=== PATIENT | female | born 1995 | race Caucasian/White ===

== ENCOUNTER → 2021-07-26 | Outpatient (CLI) | payer BC ==
--- NOTE | 2021-07-26 12:31 | Diagnostic Imaging Report ---
PROCEDURE: Pelvic comp/transvaginal sonogram. TECHNIQUE: Complete transabdominal and transvaginal pelvic ultrasound was performed. In addition, limited pelvic Doppler was performed. INDICATION: Abnormal uterine bleeding. FINDINGS: The uterus is anteverted measuring 6.8 x 3.3 x 4.3 cm. The endometrium is 4 mm in thickness. The IUD appears to be appropriately centered in the endometrial canal. No myometrial mass is detected. The right ovary measures 3.5 x 1.8 x 2.8 cm and the left ovary measures 3.2 x 2.0 x 2.5 cm. There is blood flow to both ovaries. Both ovaries contain small follicles. No adnexal mass or free fluid is seen. IMPRESSION: 1. The IUD appears to be appropriately centered in the endometrial canal. 2. No acute feature is detected. Dictated by: Dictated on workstation # [id number]
== END ==
LOC: RAD 10:39
PROVIDERS: ATTEND Obstetrics & Gynecology
DX: N93.9 Abnormal uterine and vaginal bleeding, unspecified (principal); Z97.5 Presence of (intrauterine) contraceptive device
CPT/HCPCS: 76830; 76856